=== PATIENT | female | born 1995 | race Two or more races ===

== ENCOUNTER 2022-01-05 14:15 | Emergency (ER) | payer OTHER ==
[~2022-01-05] VITALS: Ht 165.1 cm; Wt 59.0 kg
== END 2022-01-05 22:12 | disposition home or self-care (01) ==
LOC: ER 14:15
DX: R10.9 Unspecified abdominal pain (principal); R10.2 Pelvic and perineal pain; Z20.828 Contact with and (suspected) exposure to other viral communicable diseases